=== PATIENT | female | born 1995 | race African-American/Black ===

== ENCOUNTER 2016-05-10 18:24 | Emergency (ER) | payer MEDICAID ==
[~2016-05-10] VITALS: Ht 180.3 cm; Wt 135.0 kg
[~2016-05-10 18:24] MED LIST: ALBU8I INH; METF500 PO; PRED20 PO; SYNT50TA PO; VENTAER INH
[2016-05-10 18:26] VITALS: BP 162/92; PULSE 97; RESP 20; TEMP 98.3; O2SAT 96
[2016-05-10] MEDS ORDERED: ALBUAER3 INH (18:38)
[2016-05-10] MEDS ORDERED: LEVO.05 PO (18:38)
[2016-05-10] MEDS ORDERED: METF500T PO (18:38)
[2016-05-10] MEDS ORDERED: KETOROLAC TROMETHAMINE 60 MG/2 ML (IM) VIAL IM ONE (19:00)
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
[2016-05-10 20:43] VITALS: BP 168/75; TEMP 98.1
[2016-05-10] MEDS ORDERED: IBUPROFEN 800 MG TAB PO ONE (20:45)
== END 2016-05-10 20:44 | disposition home or self-care (01) ==
LOC: NEPB 18:24
DX: S80.01XA Contusion of right knee, initial encounter (principal); S40.011A Contusion of right shoulder, initial encounter; S30.0XXA Contusion of lower back and pelvis, initial encounter; E11.9 Type 2 diabetes mellitus without complications; E07.9 Disorder of thyroid, unspecified; Z79.84 Long term (current) use of oral hypoglycemic drugs; Z87.09 Personal history of other diseases of the respiratory system; V09.9XXA Pedestrian injured in unspecified transport accident, initial encounter; Y92.481 Parking lot as the place of occurrence of the external cause
CPT/HCPCS: 72110; 73030; 73564; 84703; 99283

== ENCOUNTER 2016-10-16 09:00 | Emergency (ER) | payer MEDICAID ==
[~2016-10-16] VITALS: Ht 180.3 cm; Wt 125.0 kg
[~2016-10-16 09:00] MED LIST changes: -ALBU8I INH; +ALBUAER3 INH; +LEVO.05 PO; -METF500 PO; +METF500T PO; -PRED20 PO; -SYNT50TA PO; -VENTAER INH
[2016-10-16 09:03] VITALS: BP 134/82; PULSE 84; RESP 14; TEMP 98.5; O2SAT 98
[2016-10-16] MEDS ORDERED: NAPR500 PO (09:24)
--- NOTE | 2016-10-16 09:25 | PD ---
HPI Chief Complaint: Injury Time Seen by Provider: 09:13 Travel History International Travel<30 days: No Contact w/Intl Traveler<30days: No Traveled to known affect area: No History of Present Illness HPI Is a 21-year-old woman who presents to the emergency department complaining of left fifth toe pain. She states that she injured it about 3-4 months ago went to [facility] And out sideways. She states she's been seen 3 times already for persistent left toe and foot pain. She states she's had 2 x-rays done of it at [facility]. She states she was told both x- rays were normal. She comes in today because she still has pain in the toe, tender, and she has pain when she puts it into her shoe. History Past Medical History Narrative Medical Stomach problems : 0 Past Surgical History Surgical History: No Previous Surgery Social History Alcohol Use: No Tobacco Use: No Allergies-Medications (Allergen,Severity, Reaction): Coded Allergies: No Known Allergies (Unverified , 10/16/16) Reported Meds & Prescriptions Reported Meds & Active Scripts Active Reported Proair Hfa 8.5 GM Inh (Albuterol Sulfate) 90 Mcg/Act Aer 1 Puff INH Q4H PRN 108 mcg/actuation Synthroid (Levothyroxine Sodium) 50 Mcg Tab 50 Mcg PO DAILY Metformin (Metformin HCl) 500 Mg Tab 500 Mg PO BIDPC With meals Review of Systems Except as stated in HPI: all other systems reviewed are Neg Physical Exam Narrative GENERAL: A 21-year-old, no acute distress. SKIN: Warm and dry. CARDIOVASCULAR: Warm and well perfused. RESPIRATORY: Normal rate and effort. MUSCULOSKELETAL: Focused examination of the left foot reveals normal appearance of the foot. There is tenderness of the fifth MTP joint. She has pain with movement of the left fifth toe. No swelling or deformity. NEUROLOGICAL: Awake and alert. No gross deficits. Data Data Last Documented VS Vital Signs Date Time Temp Pulse Resp B/P Pulse Ox O2 Delivery O2 Flow Rate FiO2 10/16/16 09:03 98.5 84 14 134/82 98 Room Air MDM Medical Decision Making Medical Screen Exam Complete: Yes Emergency Medical Condition: Yes Differential Diagnosis Left fifth toe pain, fracture, poorly healing injury, dislocation, other Narrative Course Medical decision making This is a 21-year-old woman presents emergent arm left fifth toe pain she's had 2 previous x-rays that were reportedly negative. All fingers and he did not repeating the x-ray. We'll recommend joselito taping it. I will recommend wearing a more supportive shoe. We'll recommend outpatient follow-up with podiatry. NSAIDs for pain. Diagnosis Primary Impression: Toe pain, left Referrals: Y[facility] W[facility] 1 week Additional Instructions: Follow-up with a stencil cutter machine for further evaluation of your toe pain. Take Naprosyn as needed. Recommend joselito taping the toe for comfort, and wearing a more supportive shoe. Med/Other Pt SpecificInfo: Prescription(s) given Scripts Naproxen (Naprosyn)500 Mg [id number] Mg PO BID PRN (PAIN SCALE 1 TO 10) #20 TAB Prov:Og Cantrell MD 10/16/16 Disposition: 01 DISCHARGE HOME Condition: Stable Og Cantrell MD Oct 16, 2016 09:24
== END 2016-10-16 09:50 | disposition home or self-care (01) ==
LOC: NEPD 09:00
DX: M79.675 Pain in left toe(s) (principal)
CPT/HCPCS: 99283

== ENCOUNTER 2016-10-20 16:43 | Emergency (ER) | payer MEDICAID ==
[~2016-10-20] VITALS: Ht 180.3 cm; Wt 160.0 kg
[~2016-10-20 16:43] MED LIST changes: +NAPR500 PO
[2016-10-20 16:44] VITALS: BP 160/88; PULSE 101; RESP 16; TEMP 98.2; O2SAT 98
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
[2016-10-20] MEDS ORDERED: NON-500T13 PO (17:28)
[2016-10-20] MEDS ORDERED: IBUP800T23 PO (17:28)
== END 2016-10-20 18:06 | disposition home or self-care (01) ==
LOC: NEPK 16:43
DX: S60.222A Contusion of left hand, initial encounter (principal); J45.909 Unspecified asthma, uncomplicated; E11.9 Type 2 diabetes mellitus without complications; F12.10 Cannabis abuse, uncomplicated; Z79.84 Long term (current) use of oral hypoglycemic drugs; W21.11XA Struck by baseball bat, initial encounter; Y93.9 Activity, unspecified; Y92.9 Unspecified place or not applicable; Y99.9 Unspecified external cause status
CPT/HCPCS: 73110; 73130; 99283

== ENCOUNTER 2016-12-17 01:29 | Emergency (ER) | payer OTHER, MEDICAID ==
[~2016-12-17 01:29] MED LIST changes: +IBUP800T23 PO; -NAPR500 PO; +NON-500T13 PO
[2016-12-17 01:30] VITALS: BP 129/71; PULSE 93; RESP 15; TEMP 99; O2SAT 100
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
[2016-12-17] MEDS ORDERED: KETOROLAC TROMETHAMINE 60 MG/2 ML (IM) VIAL IM ONE (02:00)
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
== END 2016-12-17 03:07 | disposition home or self-care (01) ==
LOC: NEPD 01:29
DX: S39.012A Strain of muscle, fascia and tendon of lower back, initial encounter (principal); S86.911A Strain of unspecified muscle(s) and tendon(s) at lower leg level, right leg, initial encounter; J45.909 Unspecified asthma, uncomplicated; E11.9 Type 2 diabetes mellitus without complications; E07.9 Disorder of thyroid, unspecified; V03.10XA Pedestrian on foot injured in collision with car, pick-up truck or van in traffic accident, initial encounter
CPT/HCPCS: 72100; 73564; 96372; 99284; J1885

== ENCOUNTER 2017-04-14 15:17 | Emergency (ER) | payer MEDICAID, OTHER ==
[~2017-04-14] VITALS: Ht 180.3 cm; Wt 136.4 kg
[~2017-04-14 15:17] MED LIST changes: -IBUP800T23 PO; -NON-500T13 PO
[2017-04-14 15:19] VITALS: BP 152/92; PULSE 107; RESP 14; TEMP 101.1; O2SAT 99
[2017-04-14] MEDS ORDERED: SODIUM CHLOR 0.9% 1000 ML INJ 1,000 ML IV SCH (15:46)
[2017-04-14] MEDS ORDERED: SODIUM CHLORIDE 0.9% FLUSH 10 ML FLUSH IV FLUSH PRN (16:00)
[2017-04-14] MEDS ORDERED: ONDANSETRON HCL 4 MG/2 ML VIAL IVP ONE (16:00)
[2017-04-14] MEDS ORDERED: ACETAMINOPHEN 325 MG TAB PO ONE (16:00)
--- NOTE | 2017-04-14 16:00 | PD ---
HPI Chief Complaint: Cold / Flu Symptoms Time Seen by Provider: 15:36 Travel History International Travel<30 days: No Contact w/Intl Traveler<30days: No Traveled to known affect area: No History of Present Illness HPI 22-year-old female presents to the emergency department for evaluation of fever that started last night. Patient states that she had a syncopal last night. She states she was laying down when she had the syncopal episode. She states that her cousin told her she had it. Patient reports headache, sore throat, cough, congestion, abdominal pain. Patient states that she has epigastric abdominal pain for 2 days. She denies any history of this. She states she did not know she was running a fever. Patient was noted to be 101.1 in triage. Patient reports history of diabetes and asthma. She reports nausea, but no vomiting. She reports diarrhea, no blood in her stool. She currently rates abdominal pain 6 out of 10, sharp and throbbing. Moderate severity. She has not taken anything for her fever. No exacerbating or alleviating factors. PFSH Past Medical History Asthma: Yes Diabetes: Yes Patient Takes Glucophage: Yes Diminished Hearing: No Respiratory: Yes (ASTHMA) Immunizations Current: No Thyroid Disease: Yes ?: Not : 0 Past Surgical History Surgical History: No Previous Surgery Social History Alcohol Use: No Tobacco Use: No Substance Use: Yes (marijuana) Allergies-Medications (Allergen,Severity, Reaction): Coded Allergies: No Known Allergies (Unverified Adverse Reaction, Unknown, 04/14/17) Reported Meds & Prescriptions Reported Meds & Active Scripts Active Reported Proair Hfa 8.5 GM Inh (Albuterol Sulfate) 90 Mcg/Act Aer 1 Puff INH Q4H PRN 108 mcg/actuation Synthroid (Levothyroxine Sodium) 50 Mcg Tab 50 Mcg PO DAILY Metformin (Metformin HCl) 500 Mg Tab 500 Mg PO BIDPC With meals Review of Systems Except as stated in HPI: all other systems reviewed are Neg Physical Exam Narrative GENERAL: Well-nourished, well-developed female patient, afebrile SKIN: Focused skin assessment warm/dry. HEAD: Normocephalic. Atraumatic. ENT: Mucosa pink and moist. Bilateral tonsils are erythematous without exudate. No uvular edema. No uvular, palatal, or tonsillar deviation. Airway patent. Nasal turbinates appear normal without nasal blood, purulent drainage or septal hematoma. Bilateral tympanic membranes are clear without erythema or perforation. EYES: No scleral icterus. No injection or drainage. NECK: Supple, trachea midline. No JVD or lymphadenopathy. CARDIOVASCULAR: Regular rate and rhythm without murmurs, gallops, or rubs. RESPIRATORY: Breath sounds equal bilaterally. No accessory muscle use. Lungs sounds are clear to auscultation GASTROINTESTINAL: Abdomen soft and nondistended. MUSCULOSKELETAL: No cyanosis, or edema. BACK: Nontender without obvious deformity. No CVA tenderness. Data Data Last Documented VS Vital Signs Date Time Temp Pulse Resp B/P (MAP) Pulse Ox O2 Delivery O2 Flow Rate FiO2 04/14/17 16:55 100.0 04/14/17 15:19 107 14 99 Orders Orders Complete Blood Count With Diff (04/14/17 15:46) Comprehensive Metabolic Panel (04/14/17 15:46) Lipase (04/14/17 15:46) Urinalysis - C+S If Indicated (04/14/17 15:46) Iv Access Insert/Monitor (04/14/17 15:46) Ecg Monitoring (04/14/17 15:46) Oximetry (04/14/17 15:46) Ondansetron Inj (Zofran Inj) (04/14/17 16:00) Sodium Chlor 0.9% 1000 Ml Inj (Ns 1000 M (04/14/17 15:46) Sodium Chloride 0.9% Flush (Ns Flush) (04/14/17 16:00) Chest, Single Ap (04/14/17 15:46) Ed Urine Pregnancytest Poc (04/14/17 15:46) Influenzae A/B Antigen (04/14/17 15:46) Group A Rapid Strep Screen (04/14/17 15:46) Acetaminophen (Tylenol) (04/14/17 16:00) Ketorolac Inj (Toradol Inj) (04/14/17 16:45) Labs Laboratory Tests Test 04/14/17 15:59 04/14/17 16:50 White Blood Count 11.2 TH/MM3 Red Blood Count 5.13 MIL/MM3 Hemoglobin 12.6 GM/DL Hematocrit 38.4 % Mean Corpuscular Volume 74.9 FL Mean Corpuscular Hemoglobin 24.5 PG Mean Corpuscular Hemoglobin Concent 32.8 % Red Cell Distribution Width 14.3 % Platelet Count 324 TH/MM3 Mean Platelet Volume 7.8 FL Neutrophils (%) (Auto) 85.8 % Lymphocytes (%) (Auto) 8.0 % Monocytes (%) (Auto) 5.2 % Eosinophils (%) (Auto) 0.5 % Basophils (%) (Auto) 0.5 % Neutrophils # (Auto) 9.6 TH/MM3 Lymphocytes # (Auto) 0.9 TH/MM3 Monocytes # (Auto) 0.6 TH/MM3 Eosinophils # (Auto) 0.1 TH/MM3 Basophils # (Auto) 0.1 TH/MM3 CBC Comment DIFF FINAL Differential Comment Blood Urea Nitrogen 6 MG/DL Creatinine 0.76 MG/DL Random Glucose 88 MG/DL Total Protein 8.1 GM/DL Albumin 3.8 GM/DL Calcium Level 9.0 MG/DL Alkaline Phosphatase 70 U/L Aspartate Amino Transf (AST/SGOT) 10 U/L Alanine Aminotransferase (ALT/SGPT) 14 U/L Total Bilirubin 0.3 MG/DL Sodium Level 138 MEQ/L Potassium Level 3.5 MEQ/L Chloride Level 107 MEQ/L Carbon Dioxide Level 23.8 MEQ/L Anion Gap 7 MEQ/L Estimat Glomerular Filtration Rate 116 ML/MIN Lipase 81 U/L Urine Color YELLOW Urine Turbidity HAZY Urine pH 7.5 Urine Specific [place] 1.013 Urine Protein TRACE mg/dL Urine Glucose (UA) NEG mg/dL Urine Ketones NEG mg/dL Urine Occult Blood LARGE Urine Nitrite NEG Urine Bilirubin NEG Urine Urobilinogen LESS THAN 2.0 MG/DL Urine Leukocyte Esterase SMALL Urine RBC 120 /hpf Urine WBC 8 /hpf Urine Squamous Epithelial Cells 4 /hpf Urine Bacteria OCC /hpf Microscopic Urinalysis Comment CULT NOT INDICATED MDM Medical Decision Making Medical Screen Exam Complete: Yes Emergency Medical Condition: Yes Medical Record Reviewed: Yes Differential Diagnosis Influenza versus strep pharyngitis versus viral syndrome versus UTI versus pyelonephritis versus URI versus bronchitis versus pneumonia Narrative Course 22-year-old female presents to the emergency department for evaluation of multiple symptoms and fever that started last night. IV is established. CBC, CMP, lipase, UA, and influenza, strep swab, urine test, chest x-ray are ordered and pending. Patient is given normal saline 1 L IV bolus, Zofran 4 mg IV, Tylenol 650 mg by mouth. CBC shows leukocytosis of 11.2. CMP shows no acute abnormality. Lipase is 81. UA shows small leukocyte esterase, 120 RBC, 8 WBC. UPT is negative. Influenza is negative. Strep is positive. Chest x-ray shows no acute disease. Patient was started on Pen-Vee K for strep throat, Macrobid for UTI. She is encouraged to take Tylenol, ibuprofen [id number] as needed for pain/ fever. She is to follow-up with a primary care physician. She is return here for any acute worsening of symptoms. The patient was discharged in stable condition with instructions, including return instructions and follow up instructions. Diagnosis Primary Impression: Strep throat Referrals: Primary Care Physician call for appointment Patient Instructions: General Instructions, Strep Throat (ED), Urinary Tract Infection in Women (ED) Additional Instructions: Take Penicillin as directed until gone for strep throat. Take Macrobid as directed until gone for UTI. [id number] Tylenol every 4 hours, [id number] ibuprofen every 6-8 hours as needed for pain/fever. Warm, salt water gargles for sore throat. Follow-up with your primary care physician. Return to the emergency department for any acute worsening of symptoms. Med/Other Pt SpecificInfo: Prescription(s) given Scripts Nitrofurantoin Monohydrate Macrocrystals (Macrobid) 100 Mg Capsule 100 MG PO BID for Infection for 7 Days, #14 CAP 0 Refills Prov: Vicki Howard 04/14/17 Penicillin V Potassium (Penicillin V Potassium) 500 Mg Tab 500 MG PO Q8H for Infection for 10 Days, #30 TAB 0 Refills Prov: Vicki Howard 04/14/17 Disposition: 01 DISCHARGE HOME Condition: Stable Vicki Howard Apr 14, 2017 16:00
[2017-04-14 16:08] LABS: AUTOMATED NEUTROPHIL # 9.6 TH/MM3 (1.8-7.7); BASOPHIL # 0.1 TH/MM3 (0-0.2); BASOPHIL % 0.5 % (0.0-2.0); EOSINOPHIL # 0.1 TH/MM3 (0-0.4); EOSINOPHIL % 0.5 % (0.0-4.0); HEMATOCRIT 38.4 % (35.0-46.0); HEMOGLOBIN 12.6 GM/DL (11.6-15.3); LYMPHOCYTE # 0.9 TH/MM3 (1.0-4.8); MEAN CELL VOLUME 74.9 FL (80.0-100.0); MEAN CORPUSCULAR HEMOGLOBIN 24.5 PG (27.0-34.0); MEAN CORPUSCULAR HGB CONC 32.8 % (32.0-36.0); MEAN PLATELET VOLUME 7.8 FL (7.0-11.0); MONO % 5.2 % (0.0-8.0); MONOCYTE # 0.6 TH/MM3 (0-0.9); NEUT % 85.8 % (16.0-70.0); PLATELET COUNT 324 TH/MM3 (150-450); RED BLOOD COUNT 5.13 MIL/MM3 (4.00-5.30); RED CELL DISTRIBUTION WIDTH 14.3 % (11.6-17.2); WHITE BLOOD COUNT 11.2 TH/MM3 (4.0-11.0)
[2017-04-14 16:24] LABS: ALBUMIN 3.8 GM/DL (3.4-5.0); ALT (GPT) 14 U/L (10-53); AST (GOT) 10 U/L (15-37); BICARBONATE 23.8 MEQ/L (21.0-32.0); BLOOD UREA NITROGEN 6 MG/DL (7-18); CHLORIDE 107 MEQ/L (98-107); CREATININE 0.76 MG/DL (0.50-1.00); GLOMERULAR FILTRATION RATE 116 ML/MIN (>89); GLUCOSE,RANDOM 88 MG/DL (74-106); LIPASE 81 U/L (73-393); SODIUM (NA) 138 MEQ/L (136-145)
[2017-04-14 16:25] LABS: ALKALINE PHOSPHATASE 70 U/L (45-117); TOTAL BILIRUBIN ADULT 0.3 MG/DL (0.2-1.0); TOTAL PROTEIN 8.1 GM/DL (6.4-8.2)
--- NOTE | 2017-04-14 16:28 | RADRPT ---
EXAM DATE/TIME: 04/14/2017 16:17 [facility] COMPARISON: No previous studies available for comparison. INDICATIONS : Fever, syncopal episode. MEDICAL HISTORY : None. SURGICAL HISTORY : None. ENCOUNTER: Initial ACUITY: 2 days PAIN SCORE: 0/10 LOCATION: chest FINDINGS: A single view of the chest demonstrates the lungs to be symmetrically aerated without evidence of mas s, infiltrate or effusion. The cardiomediastinal contours are unremarkable. Osseous structures are intact. CONCLUSION: No acute disease. Juni Bhandari MD on April 14, 2017 at 16:26 Board Certified Radiologist. This report was verified electronically.
[2017-04-14] MEDS ORDERED: KETOROLAC TROMETHAMINE 30 MG/ML (IVP) VIAL IV PUSH ONE (16:45)
[2017-04-14 16:55] VITALS: TEMP 100
[2017-04-14 17:31] LABS: BACTERIA, URINE OCC /hpf; BILIRUBIN, URINE NEG (NEG); BLOOD, URINE LARGE (NEG); GLUCOSE,URINE NEG (NEG); KETONE, URINE NEG (NEG); NITRITE,URINE NEG (NEG); PH, URINE 7.5 (5.0-8.5); SQUAMOUS EPITHELIAL CELL URINE 4 /hpf (0-5); URINE COLOR YELLOW (YELLW/STRAW); URINE LEUKOCYTE ESTERASE SMALL (NEG)
[2017-04-14] MEDS ORDERED: PENI500T PO (17:43)
[2017-04-14] MEDS ORDERED: MACR100C2 PO (17:43)
== END 2017-04-14 18:12 | disposition home or self-care (01) ==
LOC: NEPD 15:17
DX: J02.0 Streptococcal pharyngitis (principal); B95.0 Streptococcus, group A, as the cause of diseases classified elsewhere; E07.9 Disorder of thyroid, unspecified; E11.9 Type 2 diabetes mellitus without complications; Z79.84 Long term (current) use of oral hypoglycemic drugs
CPT/HCPCS: 71010; 80053; 81001; 83690; 84703; 85025; 87804; 87880; 96361; 96374; 96375; 99284; J1885; J2405; J7030

== ENCOUNTER 2017-06-24 17:26 | Emergency (ER) | payer OTHER ==
[~2017-06-24 17:26] MED LIST changes: +MACR100C2 PO; +PENI500T PO
[2017-06-24 17:49] VITALS: BP 162/90; PULSE 103; RESP 18; TEMP 98.7; O2SAT 97
--- NOTE | 2017-06-24 20:25 | PD ---
HPI Chief Complaint: Dizziness Time Seen by Provider: 19:53 Travel History International Travel<30 days: No Contact w/Intl Traveler<30days: No Traveled to known affect area: No History of Present Illness HPI Patient comes in complaining of sinus congestion, sinus pressure, right frontal headache, cough, rhinorrhea, and dizziness ongoing for 2 days. Patient reports took ibuprofen seemed to help alleviate her symptoms. Patient has no anything else for this. Denies any fevers, chest pain, shortness of breath, nausea, vomiting, sore throat, loss change in bowel or bladder, numbness or tingling anywhere, , or known sick contacts. Patient reports her blood sugars are well controlled. Patient denies anything making symptoms worse. Denies any radiation of pain. PFSH Past Medical History Asthma: Yes Diabetes: Yes Diminished Hearing: No Respiratory: Yes (ASTHMA) Immunizations Current: No Thyroid Disease: Yes ?: Not LMP: 06/23/17 : 0 Social History Alcohol Use: No Tobacco Use: No Substance Use: Yes (marijuana) Allergies-Medications (Allergen,Severity, Reaction): Coded Allergies: No Known Allergies (Unverified Adverse Reaction, Unknown, 06/24/17) Reported Meds & Prescriptions Reported Meds & Active Scripts Active Augmentin (Amoxicillin-Clavulanate) 875-125 Mg Tab 1 Tab PO BID 10 Days Macrobid (Nitrofurantoin Monohydrate Macrocrystals) 100 Mg Capsule 100 Mg PO BID 7 Days Penicillin V Potassium 500 Mg Tab 500 Mg PO Q8H 10 Days Reported Proair Hfa 8.5 GM Inh (Albuterol Sulfate) 90 Mcg/Act Aer 1 Puff INH Q4H PRN 108 mcg/actuation Synthroid (Levothyroxine Sodium) 50 Mcg Tab 50 Mcg PO DAILY Metformin (Metformin HCl) 500 Mg Tab 500 Mg PO BIDPC With meals Review of Systems Except as stated in HPI: all other systems reviewed are Neg Physical Exam Narrative GENERAL: Well-developed, overly nourished, in no acute distress, and non-ill appearing. SKIN: Focused skin assessment warm and dry. HEAD: Atraumatic. Normocephalic. EYES: Pupils equal and round. EOMI. No scleral icterus. No injection or drainage. ENT: No nasal bleeding or discharge. Mucous membranes pink and moist. Tympanic membranes pearly carter bilaterally. Posterior pharynx nonerythematous without exudate. Uvula is midline. Patient reports tenderness to palpation to facial sinuses. NECK: Trachea midline. No cervical lymphadenopathy. Supple. No nuclear rigidity. CARDIOVASCULAR: Regular rate and rhythm. No murmur appreciated. RESPIRATORY: No accessory muscle use. No respiratory distress. Clear to auscultation. Breath sounds equal bilaterally. MUSCULOSKELETAL: No obvious deformities. No clubbing. No cyanosis. No edema. Full range of motion. NEUROLOGICAL: Awake and alert. No obvious cranial nerve deficits. Motor grossly within normal limits. Normal speech. PSYCHIATRIC: Appropriate mood and affect; insight and judgment normal. Data Data Last Documented VS Vital Signs Date Time Temp Pulse Resp B/P (MAP) Pulse Ox O2 Delivery O2 Flow Rate FiO2 06/24/17 17:49 98.7 103 18 162/90 (114) 97 Orders Orders Urinalysis - C+S If Indicated (06/24/17 19:39) Ed Urine Pregnancytest Poc (06/24/17 19:39) Blood Glucose (06/24/17 19:53) Ed Discharge Order (06/24/17 20:46) Amoxicil-Clavulanate (Augmentin) (06/24/17 21:00) Cetirizine (Zyrtec) (06/24/17 21:00) Labs Laboratory Tests Test 06/24/17 19:40 Urine Color YELLOW Urine Turbidity CLEAR Urine pH 6.0 Urine Specific [place] 1.023 Urine Protein NEG mg/dL Urine Glucose (UA) NEG mg/dL Urine Ketones NEG mg/dL Urine Occult Blood MOD Urine Nitrite NEG Urine Bilirubin NEG Urine Urobilinogen LESS THAN 2.0 MG/DL Urine Leukocyte Esterase NEG Urine RBC 1 /hpf Urine WBC 2 /hpf Urine Squamous Epithelial Cells 3 /hpf Urine Amorphous Sediment RARE Urine Mucus FEW /lpf Microscopic Urinalysis Comment CULT NOT INDICATED MDM Medical Decision Making Medical Screen Exam Complete: Yes Emergency Medical Condition: Yes Differential Diagnosis Allergies, sinusitis, UTI, , uncontrolled diabetes Narrative Course Patient looks great, non-ill appearing. The patient is tolerating fluids and is well hydrated. Appears acute sinusitis. No clinical evidence by history or evaluation to suspect meningitis and/or sepsis. There was no evidence to suggest deep abscess or cavernous sinus involvement. I discussed with the patient, diagnosis, plan of care, medications and to follow up with the patients primary physician. The patient was instructed to return if the worsens in anyway, especially if not tolerating fluids, increased sinus pain or swelling , worsening headache, persistent fever, difficulty swallowing or breathing, or as needed. The patient agreed with plan. ENT referral was also given. Patient in no obvious distress upon re-evaluation. All pertinent laboratory result(s) discussed with patient/family. Patient was asked if they wanted to speak to my attending, which the patient did not wish to do at this time. Any questions/concerns in reference to patient diagnosis/condition discussed and clarified prior to patient's discharge. Reinforced sheer importance of close follow up with patient's primary physician or primary care clinic. Instructed patient to return to ED immediately, if symptoms return/worsen. Patient showed understanding of above instructions. Further instructions and recommendations were detailed in discharge paperwork. Patient ambulated without difficulty out of ED at discharge. Diagnosis Primary Impression: Sinusitis Qualified Codes: J01.90 - Acute sinusitis, unspecified Referrals: Fausto Rouse MD [facility] Patient Instructions: General Instructions, Sinusitis (ED) Additional Instructions: Follow-up with your primary care physician and/or ENT in 3-5 days for reevaluation. Take all medication as prescribed. Use [id number] cold and flu medication for symptomatic relief. Follow instructions on the packaging. Drink plenty of non-caffeinated and nonalcoholic fluids. Return to the emergency department if symptoms get worse. Med/Other Pt SpecificInfo: Prescription(s) given Scripts Amoxicillin-Clavulanate (Augmentin) 875-125 Mg Tab 1 TAB PO BID for Infection for 10 Days, #20 TAB 0 Refills Prov: Jessica Lim MD 06/24/17 Disposition: 01 DISCHARGE HOME Condition: Stable Yogi Zhu Jun 24, 2017 20:25
[2017-06-24 20:39] LABS: AMORPHOUS SEDIMENT, URINE RARE; BILIRUBIN, URINE NEG (NEG); BLOOD, URINE MOD (NEG); GLUCOSE,URINE NEG (NEG); KETONE, URINE NEG (NEG); MUCUS URINE FEW /lpf (OCC); NITRITE,URINE NEG (NEG); SQUAMOUS EPITHELIAL CELL URINE 3 /hpf (0-5); URINE COLOR YELLOW (YELLW/STRAW); URINE LEUKOCYTE ESTERASE NEG (NEG)
[2017-06-24] MEDS ORDERED: AUGM875T3 PO (20:45)
[2017-06-24] MEDS ORDERED: AMOXICILLIN/CLAVULANATE K 875 MG TAB PO ONE (21:00)
[2017-06-24] MEDS ORDERED: CETIRIZINE HCL 10 MG TAB PO ONE (21:00)
== END 2017-06-24 21:25 | disposition home or self-care (01) ==
LOC: NEPK 17:26
DX: J01.90 Acute sinusitis, unspecified (principal); E11.9 Type 2 diabetes mellitus without complications; J45.909 Unspecified asthma, uncomplicated; E07.9 Disorder of thyroid, unspecified; F12.90 Cannabis use, unspecified, uncomplicated; Z79.84 Long term (current) use of oral hypoglycemic drugs
CPT/HCPCS: 81001; 84703; 99283

== ENCOUNTER 2017-07-05 10:39 | Emergency (ER) | payer OTHER ==
[~2017-07-05] VITALS: Ht 180.3 cm; Wt 150.0 kg
[~2017-07-05 10:39] MED LIST changes: +AUGM875T3 PO
[2017-07-05 10:49] VITALS: BP 148/60; PULSE 75; RESP 22; TEMP 98.9; O2SAT 100
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
[2017-07-05] MEDS ORDERED: [UNRECOGNIZED DRUG - REMARK] (11:09)
[2017-07-05] MEDS ORDERED: TETANUS/DIPHTHERIA TOXOID ADULT 0.5 ML VIAL IM ONE (11:15)
[2017-07-05] MEDS ORDERED: ACETAMINOPHEN/HYDROcodone 325 MG/5 MG TAB PO ONE (11:15)
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
[2017-07-05] MEDS ORDERED: NORC5TAB PO (12:19)
[2017-07-05] MEDS ORDERED: CEPH-460 PO (12:19)
[2017-07-05] MEDS ORDERED: IBUP-232 PO (12:19)
[2017-07-05] MEDS ORDERED: BACT800T5 PO (12:19)
--- NOTE | 2017-07-05 12:34 | RADRPT ---
EXAM DATE/TIME: 07/05/2017 11:29 [facility] COMPARISON: CHEST SINGLE AP, April 14, 2017, 16:17. INDICATIONS : Pain post fall. MEDICAL HISTORY : None. SURGICAL HISTORY : None. ENCOUNTER: Initial ACUITY: 2 days PAIN SCORE: 10/10 LOCATION: Right Ankle. FINDINGS: There is soft tissue swelling about the ankle mortise. The osseous structures are intact. The alignme nt is anatomic. CONCLUSION: 1. Soft tissue swelling. 2. No acute bony abnormality. 3. No retained foreign body. Kishore Suarez MD on July 05, 2017 at 12:31 Board Certified Radiologist. This report was verified electronically.
== END 2017-07-05 13:20 | disposition home or self-care (01) ==
LOC: NEPE 10:39
DX: S06.9X9A Unspecified intracranial injury with loss of consciousness of unspecified duration, initial encounter (principal); S00.83XA Contusion of other part of head, initial encounter; H11.421 Conjunctival edema, right eye; S93.401A Sprain of unspecified ligament of right ankle, initial encounter; S40.811A Abrasion of right upper arm, initial encounter; L08.9 Local infection of the skin and subcutaneous tissue, unspecified; J45.909 Unspecified asthma, uncomplicated; E11.9 Type 2 diabetes mellitus without complications; Y08.89XA Assault by other specified means, initial encounter; Z23 Encounter for immunization
CPT/HCPCS: 70450; 70486; 73610; 90471